=== PATIENT | male | born 1995 | race Caucasian/White ===

== ENCOUNTER 2017-02-16 18:50 | Emergency (ER) | payer OTHER ==
[~2017-02-16] VITALS: Ht 177.8 cm; Wt 77.3 kg
[2017-02-16] MEDS ORDERED: KETOROLAC TROMETHAMINE 60 MG/2 ML VIAL IM ONE (19:45)
[2017-02-16] MEDS ORDERED: CYCLOBENZAPRINE HCL 10 MG TABLET PO ONE (19:45)
[2017-02-16 20:20] VITALS: BP 122/86
== END 2017-02-16 20:20 | disposition home or self-care (01) ==
LOC: EMS 18:51
DX: M62.830 Muscle spasm of back (principal); M54.6 Pain in thoracic spine
CPT/HCPCS: 96372; 99283; J1885

== ENCOUNTER 2017-08-07 06:37 | Emergency (ER) | payer OTHER ==
[~2017-08-07] VITALS: Ht 177.8 cm; Wt 79.5 kg
[2017-08-07 09:06] VITALS: BP 138/77
== END 2017-08-07 09:26 | disposition home or self-care (01) ==
LOC: EMS 06:40
DX: S02.32XA Fracture of orbital floor, left side, initial encounter for closed fracture (principal); S02.40DA Maxillary fracture, left side, initial encounter for closed fracture; Y04.0XXA Assault by unarmed brawl or fight, initial encounter; Y93.89 Activity, other specified; Y92.89 Other specified places as the place of occurrence of the external cause; Y99.8 Other external cause status
CPT/HCPCS: 70486; 99284

== ENCOUNTER → 2017-08-12 | Emergency (ER) | payer OTHER ==
[~2017-08-12] VITALS: Ht 177.8 cm; Wt 79.5 kg
[~2017-08-12] MED LIST: CEPH500C2 PO; DiphenhydrAMINE HCL 25 MG CAPSULE PO ONE; HYDROCODONE/ACETAMINOPHEN 5-325 MG TABLET PO ONE; IBUP-2070 PO
[2017-08-12 14:30] VITALS: BP 118/76
== END | disposition home or self-care (01) ==
LOC: EMS 12:24
DX: H11.32 Conjunctival hemorrhage, left eye (principal); H57.12 Ocular pain, left eye
CPT/HCPCS: 99283